=== PATIENT | female | born 1985 | race Asian ===

== ENCOUNTER 2016-12-09 20:21 | Emergency (ER) | payer OTHER ==
[~2016-12-09] VITALS: Ht 162.6 cm; Wt 89.0 kg
[2016-12-09 20:23] VITALS: Ht 162.6 cm; Wt 89.0 kg
[2016-12-09] MEDS ORDERED: KETOROLAC 30 MG INJ IV STA (20:54)
[2016-12-09] MEDS ORDERED: SOD CHLORIDE 0.9% 1,000 ML IV STA (20:54)
[2016-12-09] MEDS ORDERED: DEXAMETHASONE 10 MG/ML 1 ML INJ IV ONE (21:00)
[2016-12-09] MEDS ORDERED: CLINDAMYCIN 600 MG/D5W (PMX) 50 ML IVPB SCH (21:00)
[2016-12-09] MEDS ORDERED: ACETAMINOPHEN 500 MG TAB PO STA (21:18)
--- NOTE | 2016-12-09 21:28 | ERD ---
ER Documentation Chief Complaint Date/Time DATE: 12/09/16 Chief Complaint Sore throat HPI The patient is a 31-year-old female who presents to the Emergency Department with complaint of sore throat and fever. The patient reports that her symptoms initially began 3 days ago, with onset of fevers, chills, body aches and sore throat. She reports gradual in onset aching pain localized to the posterior pharynx that is constant, rated 6 out of 10 in intensity. She notes that she has been taking grba-azr-azioonh DayQuil and NyQuil for symptomatic control, with no significant relief. She has not taken any antipyretic medications. Additionally, she was provided several tablets of ampicillin that she has been taking for the past couple days with no significant improvement in symptoms. She notes pain upon swallowing, though denies any difficulty tolerating solids or liquids. Denies excessive drooling, difficulty tolerating her oral secretions or change in phonation. Denies neck pain or neck stiffness. Denies rhinorrhea, nasal congestion, cough, shortness of breath, wheezing or stridor. Denies recent dental procedures, trauma, injuries. Denies difficulty opening or closing the mouth. Denies recent travel. No other complaints at this time. ROS All systems reviewed and are negative except as per history of present illness. Medications Home Meds Active Scripts Benzocaine/Menthol* (Cepacol* Sore Throat Lozenges) 1 Each Lozenge, 1 EACH MM q2h Y for SORE THROAT, #20 LOZENGE Prov:STACIA LLANES PA-C 12/09/16 Clindamycin Hcl* (Clindamycin Hcl*) 300 Mg Capsule, 300 MG PO QID for 10 Days, CAP Prov:STACIA LLANES PA-C 12/09/16 Ibuprofen* (Motrin*) 600 Mg Tab, 600 MG PO Q6, #30 TAB Prov:STACIA LLANES PA-C 12/09/16 Allergies Allergies: Coded Allergies: No Known Allergy (Unverified , 12/09/16) PMhx/Soc Anesthesia Reaction: No Hx Neurological Disorder: No Hx Respiratory Disorders: No Hx Cardiac Disorders: No Hx Psychiatric Problems: No Hx Miscellaneous Medical Probl: No Hx Alcohol Use: No Hx Substance Use: No Smoking Status: Never smoker Physical Exam Vitals Vital Signs Date Time Temp Pulse Resp B/P Pulse Ox O2 Delivery O2 Flow Rate FiO2 12/09/16 23:00 99.1 102 20 132/66 94 Room Air 12/09/16 20:23 101.5 115 20 137/64 98 Physical Exam GENERAL: Well-developed, well-nourished, in no acute distress. Nontoxic. HEENT: Head is normocephalic, atraumatic. No scleral pallor or icterus. Pupils equal, round and reactive to light. Extraocular movements intact. Conjunctiva pink. Nares are patent bilaterally. Bilaterally tympanic membranes are clear with no evidence of erythema, effusion or dulling of the light reflex. Moist mucous membranes. Posterior pharynx is erythematous with 1-2+ edema of tonsils, and exudates noted bilaterally. No kissing tonsils. Uvula is midline. No trismus , stridor or excessive drooling. No pooling of oral secretions. No submandibular swelling. No brawny induration. Phonation is normal. NECK: Supple. Tender anterior cervical lymphadenopathy. Trachea midline. No nuchal rigidity. Full range of motion. No meningismus. RESPIRATORY: Lungs are clear to auscultation bilaterally. No rales, rhonchi or wheezing. Equal breath sounds. Normal expiratory effort. CARDIOVASCULAR: Tachycardic. Regular rhythm. S1 and S2 normal. No murmurs, rubs , or gallops. GASTROINTESTINAL: Abdomen is soft, nontender, and nondistended. No guarding, no rebound tenderness. Normal bowel sounds. EXTREMITIES: No clubbing, cyanosis, or edema. Normal skin perfusion. Moving all extremities. No focal swelling or erythema. NEUROLOGIC: The patient is alert, awake, and oriented. Nonfocal exam. INTEGUMENT: Skin is clean, dry and intact. No rashes, lesions or petechiae present. Normal turgor. PSYCHIATRIC: Appropriate; Cooperative. Results 24 hrs Current Medications Medications (Trade) Dose Ordered Sig/Saurabh Route PRN Reason Start Time Stop Time Status Last Admin Dose Admin Sodium Chloride (NS) 1,000 ml @ 1,000 mls/hr Q1H STAT IV 12/09/16 20:54 12/09/16 21:53 DC 12/09/16 21:22 Ketorolac Tromethamine (Toradol) 30 mg ONCE STAT IV 12/09/16 20:54 12/09/16 21:01 DC 12/09/16 21:17 Dexamethasone 10 mg 10 mg ONCE ONCE IV 12/09/16 21:00 12/09/16 21:01 DC 12/09/16 21:17 Clindamycin HCl/ Dextrose (Cleocin 600 Mg/ D5W (Pmx)) 50 ml @ 50 mls/hr ONCE IVPB 12/09/16 21:00 12/09/16 21:59 DC 12/09/16 22:07 Acetaminophen (Tylenol Tab) 1,000 mg ONCE STAT PO 12/09/16 21:18 12/09/16 21:19 DC 12/09/16 21:33 Ondansetron HCl (Zofran Inj) 4 mg ONCE STAT IV 12/09/16 22:14 12/09/16 22:15 DC 12/09/16 22:16 Procedures/MDM EMERGENCY DEPARTMENT COURSE: The patient was stable throughout the ED course. I I kept the patient informed throughout her stay. IV access established by ED nursing staff. Fluids, Clindamycin IV, Decadron 10 mg IV, Toradol 30 mg IV, Tylenol 1,000 mg PO administered. On reevaluation, the patient reports no new complaints and states that she is feeling improved. MEDICAL DECISION MAKING: This is a 31-year-old female presenting to the Emergency Department complaining of sore throat and fever. She is non-toxic appearing and exhibits no meningeal signs. On physical examination the patient' s posterior pharynx is erythematous, with 1-2+ edema of tonsils with exudates noted bilaterally. She had tender anterior cervical lymphadenopathy. The differential diagnosis includes, but is not limited to, pharyngitis, laryngitis , epiglottitis, peritonsillar abscess, Vincent's angina, mononucleosis, allergic reaction, candidiasis, stomatitis, foreign body, dental pain, pneumonia. The patient's condition remained stable during her stay. After rest and administration of fluids, Decadron, Toradol, Tylenol and clindamycin the patient reports no new complaints and improvement in symptoms. Given that the patient presented with fever, tonsillar exudates, tender anterior cervical lymphadenopathy and no cough, she fulfilled all four conditions of the [employer] Criteria, and I believe that the patient's symptoms are most consistent with exudative pharyngitis, likely streptococcal. Uvula is midline. There was no uvular deviation, submandibular swelling, brawny induration, elevation of the tongue, change in phonation, tripoding. I do not suspect peritonsillar abscess, retropharyngeal abscess, Vincent's angina, epiglottitis or any other emergent medical condition. At this time, the patient is in stable condition, and therefore can be discharged home with prescriptions for ibuprofen, cepacol lozenges and clindamycin (given that she has already taken several days of -cillin medication with no improvement), and given strict return precautions for signs of deteriorating or worsening condition. She is advised to follow-up with her primary care provider for reevaluation and further management within the next 2-3 days, or return to the ER sooner for any new or worsening symptoms. I shared my medical decision making and plan with the patient at length and in great detail, and she verbally understands and agrees with the plan for further observation and care as an outpatient. At the time of discharge, all questions were answered. Departure Diagnosis: Primary Impression: Exudative pharyngitis Additional Impression: Acute febrile illness Condition: Stable Patient Instructions: Pharyngitis, Strep (Presumed), Self-Care for Sore Throats , Strep Throat, When You Have a Sore Throat Additional Instructions: Call your primary care doctor TOMORROW for an appointment during the next 2-3 days.See the doctor sooner or return here if your condition worsens before your appointment time. STACIA LLANES PA-C Dec 09, 2016 21:28
[2016-12-09] MEDS ORDERED: IBUP-1542 PO (21:43)
[2016-12-09] MEDS ORDERED: CLIN-73 PO (21:43)
[2016-12-09] MEDS ORDERED: BENZ1LOZ52 MM (21:44)
[2016-12-09] MEDS ORDERED: ONDANSETRON 4 MG INJ IV STA (22:14)
[2016-12-09 23:00] VITALS: BP 132/66; PULSE 102; RESP 20; TEMP 99.1
== END 2016-12-09 22:37 | disposition home or self-care (01) ==
LOC: FTE 20:21
DX: J02.9 Acute pharyngitis, unspecified (principal); R50.9 Fever, unspecified
CPT/HCPCS: 96374; 96375; J1100; J1885; J2405; J7030; Z7502; Z7610